=== PATIENT | female | born 1985 | race Caucasian/White ===

== ENCOUNTER → 2018-05-12 | Outpatient (CLI) | payer OTHER ==
[~2018-05-12] MED LIST: IOHEXOL 300 MG/ML 100ML VIAL. IV
== END | disposition home or self-care (01) ==
LOC: CT 07:44
DX: M25.532 Pain in left wrist (principal)
CPT/HCPCS: 73206

== ENCOUNTER → 2019-08-31 | Outpatient (CLI) | payer MEDICAID ==
--- NOTE | 2019-08-31 13:57 | KCIC ---
MRI of the brain without contrast 08/31/2019 Clinical History: Memory changes. Dizziness. Difficulty concentrating for 2 weeks Technique: Unenhanced T1-weighted sagittal and axial, T2-weighted axial and coronal and FLAIR, gradient echo and diffusion-weighted axial images of the brain were obtained. Findings: Comparison is made to patient's CT scan of the head dated 08/27/2019. The ventricles and sulci are within normal limits in size and configuration. No area of significant abnormal signal intensity is seen involving brain parenchyma. No extra-axial fluid collection is seen. There is no MRI evidence of acute ischemia/infarction. The paranasal sinuses are essentially clear. Normal flow voids are seen within the major vascular structures surrounding the brain parenchyma. Impression: Negative study. Electronically signed by: Arturo Dennis MD (08/31/2019 1:54 PM) [facility]
== END | disposition home or self-care (01) ==
LOC: KCIC MRI 12:41
PROVIDERS: ATTEND Registered Nurse
DX: R41.3 Other amnesia (principal); R42 Dizziness and giddiness; R41.840 Attention and concentration deficit
CPT/HCPCS: 70551

== ENCOUNTER → 2019-09-22 | Outpatient (CLI) | payer MEDICAID ==
[~2019-09-22] MED LIST changes: +GADOTERATE 7.5 MMOL/15ML VIAL. IVP ONE; -IOHEXOL 300 MG/ML 100ML VIAL. IV; +NORG1TAB70 PO
--- NOTE | 2019-09-22 14:21 | KCIC ---
LUMBAR SPINE WO/W CONTRAST History: PARS defect. Low back pain. Technique: Multiplanar, multi sequential MR imaging was performed of the lumbar spine with and without contrast. Contrast: 12 mL Dotarem. Comparison: CT August 10, 2019 Findings: Minimal anterolisthesis L5 on S1 due to bilateral L5 spondylolysis. Otherwise, normal alignment. Normal vertebral body height. No fracture. Conus terminates at the normal location. No evidence of nerve root clumping. No pathologic enhancement. L1-L2: No canal or neuroforaminal narrowing. L2-L3: No canal or neuroforaminal narrowing. L3-L4: Minimal posterior disc bulge. No canal or neuroforaminal narrowing. Mild facet arthropathy. L4-L5: Minimal posterior disc bulge. No canal or neuroforaminal narrowing. Mild facet arthropathy. L5-S1: Minimal posterior disc bulge. Mild facet arthropathy. No canal or neuroforaminal narrowing. Impression: 1. Grade 1 anterolisthesis L5 on S1 due to bilateral L5 spondylolysis, unchanged. Electronically signed by: Reilly Butler DO (09/22/2019 2:18 PM) [facility] [place]
== END | disposition home or self-care (01) ==
LOC: KCIC MRI 12:55
PROVIDERS: ATTEND Registered Nurse
DX: M47.817 Spondylosis without myelopathy or radiculopathy, lumbosacral region (principal); M43.17 Spondylolisthesis, lumbosacral region; M51.27 Other intervertebral disc displacement, lumbosacral region; M12.88 Other specific arthropathies, not elsewhere classified, other specified site
CPT/HCPCS: 72158; A9575

== ENCOUNTER → 2019-09-27 | Outpatient (CLI) | payer MEDICAID ==
[~2019-09-27] MED LIST changes: -GADOTERATE 7.5 MMOL/15ML VIAL. IVP ONE
--- NOTE | 2019-09-27 15:05 | CARD ---
MR#: [id number] Date of Study: 09/27/2019 Ordering Physician: SHANIA RICHARDSON, Referring Physician: Leeann KHALIL: Sheri Wang APPROVED REPORT EXAM: Two-dimensional and M-mode echocardiogram with Doppler and color Doppler. Other Information Quality : AverageHR: 78bpm INDICATION Palpitations Dyspnea 2D DIMENSIONS RVDd2.3 (2.9-3.5cm)Left Atrium(2D)2.9 (1.6-4.0cm) IVSd0.8 (0.7-1.1cm)Aortic Root(2D)2.5 (2.0-3.7cm) LVDd4.8 (3.9-5.9cm)LVOT Diameter2.0 (1.8-2.4cm) PWd0.8 (0.7-1.1cm)LVDs2.4 (2.5-4.0cm) FS (%) 49.6 %SV86.9 ml LVEF(%)80.9 (>50%) Aortic Valve AoV Peak Nitish.125.7cm/sAoV VTI23.9cm AO Peak GR.6.3mmHgLVOT Peak Nitish.113.4cm/s LVOT VTI 22.69cmAO Mean GR.4mmHg NASRIN (VMAX)1.88ua8WJN (VTI)2.90cm2 Mitral Valve MV E Pplbpgey89.0cm/sMV DECEL [id number] MV A Bcikinxs84.8cm/sMV YHW58pt E/A Ratio1.3MVA (PHT)3.12cm2 TDI E/Lateral E'3.0E/Medial E'4.6 Pulmonary Valve PV Peak Fghwhgtp07.1cm/sPV Peak Grad.3mmHg Tricuspid Valve RAP [id number] Pulmonary Vein S1 Ygqwshhs48.0cm/sD2 Zylfmfia45.9cm/s PVa [id number] LEFT VENTRICLE The left ventricle is normal size. There is normal left ventricular wall thickness. The left ventricu lar systolic function is normal. The Ejection Fraction is 55-60%. There is normal LV segmental wall m otion. The left ventricular diastolic function and filling is normal for age. RIGHT VENTRICLE The right ventricle is normal size. There is normal right ventricular wall thickness. The right ventr icular systolic function is normal. ATRIA The left atrium size is normal. The right atrium size is normal. The interatrial septum is intact wit h no evidence for an atrial septal defect or patent foramen ovale as noted on 2-D or Doppler imaging. AORTIC VALVE The aortic valve is normal in structure and function. Doppler and Color Flow revealed no significant aortic regurgitation. There is no significant aortic valvular stenosis. MITRAL VALVE The mitral valve is mildly thickened. There is no evidence of mitral valve prolapse. There is no mitr al valve stenosis. Doppler and Color-flow revealed trace mitral regurgitation. TRICUSPID VALVE The tricuspid valve is normal in structure and function. Doppler and Color Flow revealed trace tricus pid regurgitation. There is no tricuspid valve stenosis. PULMONIC VALVE The pulmonic valve is not well visualized. Doppler and Color Flow revealed trace to mild pulmonic kunal vular regurgitation. GREAT VESSELS The aortic root is normal in size. The ascending aorta is normal in size. The IVC is normal in size a nd collapses >50% with inspiration. PERICARDIAL EFFUSION There is no pleural effusion. There is no evidence of significant pericardial effusion. Critical Notification Critical Value: No <Conclusion> The left ventricular systolic function is normal. The Ejection Fraction is 55-60%. There is normal LV segmental wall motion. Trace mitral regurgitation. Trace tricuspid regurgitation. There is no evidence of significant pericardial effusion. Signed by : Mamadou Rees, Electronically Approved : 09/27/2019 15:04:37
== END | disposition home or self-care (01) ==
LOC: ECHO 13:02
PROVIDERS: ATTEND Registered Nurse
DX: I37.1 Nonrheumatic pulmonary valve insufficiency (principal)
CPT/HCPCS: 93306